=== PATIENT | female | born 1960 | race Caucasian/White ===

== ENCOUNTER 2019-07-02 06:00 | Day surgery (SDC) | payer OTHER ==
[2019-07-01 10:46] VITALS: BMI 19.3
--- NOTE | 2019-07-01 12:27 | HP ---
HISTORY OF PRESENT ILLNESS: Hillary Cole is a very pleasant 59-year-old female, referred for a lung mass. Apparently about a month ago, she developed supraclavicular lymphadenopathy that she noticed while she was showering. She subsequently had an ultrasound of her supraclavicular area last month. This was followed by a CT of the chest which showed a large left lung mass and small right lung masses. She subsequently was referred. She denies having any respiratory issues with this or prior to this. She did receive a course of steroids and said she felt poorly after the steroids. PAST MEDICAL HISTORY: Otherwise noncontributory. FAMILY HISTORY: She lost her father with mesothelioma. SOCIAL HISTORY: She is a smoker. She is a daily drinker. She admits that she has been drinking more and smoking more since she was told she had a lung mass. REVIEW OF SYSTEMS: Ten points otherwise negative. She denies hemoptysis. PHYSICAL EXAMINATION: VITAL SIGNS: Her pulse is 76, respiratory rate is 18, oximetry is 96% on room air. HEENT: Pupils react. Sclerae are anicteric. NECK: Remarkable for large matted supraclavicular nodes on the left. HEART: Regular rhythm. S1 and S2 are normal. LUNGS: Clear. ABDOMEN: Soft and nontender. No masses are palpated. EXTREMITIES: Without edema. IMPRESSION: Large lung mass with left supraclavicular nodes, likely metastatic disease. Her lung mass in her left upper lobe measured 9.3 x 5.7 cm. The easiest point to make a successful diagnosis will be to biopsy the supraclavicular node. I have talked to Cardiothoracic Surgery and they are willing to put her on the schedule on Friday. There are no other medical issues. She takes lisinopril for hypertension. I will be happy to see her on Friday if we have results back Friday. Job ID: [id number]
[2019-07-02] MEDS ORDERED: Fentanyl 100 MCG/2 ML VIAL ONE (06:27)
[2019-07-02 07:09] LABS: #Basophils 0.1 thou/uL (0.0-0.2); #Eosinphils 0.4 thou/uL (0.0-0.7); #Lymphocytes 1.1 thou/uL (1.20-3.40); #Monocytes 0.6 thou/uL (0.11-0.59); #Neutrophils 7.1 thou/uL (1.40-6.50); %Basophils 0.7 % (0.0-1.0); %Eosinophils 4.5 % (0.0-10.0); %Lymphocytes 11.5 % (21.0-51.0); %Monocytes 6.7 % (0.0-10.0); %Neutrophils 76.5 % (42.0-75.0); Hemoglobin 13.5 g/dL (12.0-16.0); Mean Corpuscular HGB CONC 33.9 g/dL (32.0-36.0); Mean Corpuscular Hemoglobin 32.1 pg (27.0-31.0); Mean Corpuscular Volume 94.7 fL (78.0-98.0); Mean Platelet Volume 6.5 fL (7.4-10.4); Platelet Count 398 thou/uL (130-400); RBC Distribution Width 12.5 % (11.5-14.5); Red Blood Cell (RBC) Count 4.19 mill/uL (4.20-5.40); White Blood Cell (WBC) Count 9.3 thou/uL (4.8-10.8)
[2019-07-02 07:20] LABS: Anion Gap 11 mmol/L (10-20); BUN (Urea Nitrogen) 7 mg/dL (9.8-20.1); Calc. Creatinine Clearance 94 mL/min (70-130); Calcium 9.1 mg/dL (7.8-10.44); Carbon Dioxide 26 mmol/L (22-29); Chloride 93 mmol/L (98-107); Estimated GFR-MDRD Greater than 90; Glucose 81 mg/dL (70-105); Potassium 4.4 mmol/L (3.5-5.1); Sodium 126 mmol/L (136-145)
[2019-07-02] MEDS ORDERED: Albuterol Sulfate HFA (OR ONLY) ONE (07:35)
[2019-07-02] MEDS ORDERED: Bupivacaine PF 0.5% 30 ML VIAL ONE (07:49)
[2019-07-02] MEDS ORDERED: EPINEPHrine 1 MG/ML AMP ONE (07:49)
--- NOTE | 2019-07-02 09:56 | OP ---
DATE OF PROCEDURE: 07/02/2019 PREOPERATIVE DIAGNOSIS: Left supraclavicular mass in the setting of a large left apical lung mass. POSTOPERATIVE DIAGNOSIS: Frozen section returned as malignant cells in a background of fibrosis. Further specimen was sent for further pathologic exam. PROCEDURE PERFORMED: Open excisional biopsy of left supraclavicular mass. ANESTHESIA: General endotracheal. ESTIMATED BLOOD LOSS: Minimal. SPECIMENS: Left supraclavicular mass, frozen as above. DESCRIPTION OF PROCEDURE: After consent was obtained, the patient was brought to the operating room and placed in supine position on the operating table. Appropriate central line and monitors were placed and general endotracheal anesthesia was induced. Left neck was prepped and draped in the usual sterile fashion. Skin incision was made over the mass and dissection down through the platysma was obtained with electrocautery. The mass was exposed. An excisional specimen sent for frozen section. Frozen section returned as malignant cells in a background of fibrosis. The pathologist requested further specimen for further exam, so a 2nd larger specimen was taken and sent for routine pathologic examination. Hemostasis was ensured. The wound was injected with bupivacaine mixed with epinephrine. The wound was then closed in layers and Dermabond applied to the skin. The patient tolerated the procedure well, was awakened, extubated, and transferred to the recovery room in stable condition. Job ID: [id number]
[2019-07-02] MEDS ORDERED: PROPOFOL 200 MG/20 ML VIAL ONE (10:22)
[2019-07-02] MEDS ORDERED: Ondansetron PF 4 MG/2 ML Vial ONE (10:22)
[2019-07-02] MEDS ORDERED: PHENYLEPHRINE-NS 100 MCG/ML 10 ML SYRINGE ONE (10:22)
[2019-07-02] MEDS ORDERED: ePHEDrine/0.9% NaCl/PF SYRINGE 50 mg/10 ml ONE (10:22)
[2019-07-02] MEDS ORDERED: Lidocaine 1% PF 5 ML VIAL ONE (10:22)
[2019-07-02] MEDS ORDERED: Dexamethasone 20 MG/5 ML VIAL ONE (10:22)
--- NOTE | 2019-07-02 17:57 | EKG ---
Test Reason : PREOP Blood Pressure : / mmHG Vent. Rate : 072 BPM Atrial Rate : 072 BPM P-R Int : 158 ms QRS Dur : 062 ms QT Int : 370 ms P-R-T Axes : 044 080 084 degrees QTc Int : 405 ms Normal sinus rhythm Septal infarct , age undetermined Abnormal ECG When compared with ECG of 20-NOV-2007 09:00, No significant change was found Confirmed by Vivian GERARDO ([id number]) on 07/02/2019 5:57:42 PM Referred By: SRAVANTHI Confirmed By:Vivian GERARDO
== END 2019-07-02 10:34 | disposition home or self-care (01) ==
LOC: SDC 06:00
PROVIDERS: ATTEND Thoracic Surgery (Cardiothoracic Vascular Surgery)
PROC: 0JB50ZX Excision of Left Neck Subcutaneous Tissue and Fascia, Open Approach, Diagnostic (ICD-10-PCS; principal; 2019-07-02)
DX: C76.0 Malignant neoplasm of head, face and neck (principal); J84.10 Pulmonary fibrosis, unspecified; F17.210 Nicotine dependence, cigarettes, uncomplicated
CPT/HCPCS: 36415; 80048; 85025; 88305; 88331; 88334; 88341; 88342; 93005; 93010; J0171; J0690; J1100; J2001; J2405; J2704; J3010; S0020

== ENCOUNTER 2019-07-22 08:22 | Outpatient (CLI) | payer OTHER ==
--- NOTE | 2019-07-22 10:01 | PET ---
PET CT SKULL TO MID THIGH: COMPARISON: None. HISTORY: Left upper lobe malignancy. TECHNIQUE: A PET/CT was performed from the skull to the mid thigh after administration of 11 millicuries of F-18 FDG. Evaluation was performed on a [employer] workstation. COMPARISON: Reference made to CT thorax 06/18/2019. FINDINGS: NECK: Hypermetabolic adenopathy of the neck is present involving the left cervical chain and the left peric lavicular region. Dominant, left supraclavicular lymph node, with maximum SUV of 3.6 measures approximately 2.1 cm in diameter. Thyroid hypodensity mentioned on recent CT chest is not reliably depicted on the basis of the techniq ue of this exam. CHEST: Large, hypermetabolic mass of left upper lobe, 7 x 6.8 cm in axial dimensions and demonstrates SUV me asuring 7.1. There is adjacent multifocal nodularity and groundglass opacity of the left upper lobe, as well as a vague groundglass nodularity of the left lower lobe. There is a partially cavitate d mass of the posterior right upper lobe, SUV, approximately 1.5, which is not hypermetabolic. There is scattered pulmonary parenchymal nodularity throughout the right lung, as well. There is hype rmetabolic adenopathy of the left paratracheal region, SUV measuring 4.4. Discrete size measurements of the adenopathy are not reliably ascertained on the basis of the nondiagnostic, noncon trast CT attenuation portion of the exam. Adjacent, mildly hypermetabolic adenopathy of the left prevascular space measures 2.7 SUV. ABDOMEN/PELVIS: No areas of hypermetabolic activity. SKELETON: No areas of hypermetabolic activity. IMPRESSION: 1. Evidence of left pulmonary malignancy with metastatic disease of the neck and chest. 2. There are additional multifocal pulmonary parenchymal opacities bilaterally, for which continued CT imaging follow-up is warranted. Transcribed Date/Time: 07/22/2019 10:31 AM
== END 2019-07-22 08:23 | disposition home or self-care (01) ==
LOC: PET 08:22
PROVIDERS: ATTEND Internal Medicine Hematology & Oncology
DX: C34.12 Malignant neoplasm of upper lobe, left bronchus or lung (principal); C79.89 Secondary malignant neoplasm of other specified sites; R91.8 Other nonspecific abnormal finding of lung field
CPT/HCPCS: 78815; A9552

== ENCOUNTER 2019-07-26 08:28 | Outpatient (CLI) | payer OTHER ==
--- NOTE | 2019-07-26 09:57 | MRI ---
MRI BRAIN WITH AND WITHOUT CONTRAST: DATE: 07/26/2019 HISTORY: 59-year-old female with "malignant neoplasm of upper lobe, left bronchus or lung C 34.12" search for brain metastasis. Dr. Monterroso was notified of results at 9:55 AM on 07/26/2019 COMPARISON: none TECHNIQUE: Multiplanar, multisequence MRI of the brain performed pre- and post-IV injection of gadolinium based contrast agent. FINDINGS: There is a 0.7 x 0.9 x 0.9 cm ring-enhancing intra-axial lesion at the left parietal briseno-white junct ion, with small surrounding the region of vasogenic edema. The lesion itself has restricted diffusion, suggestive of tumor with high nucleus to cytoplasm ratio such as small cell carcinoma. There are no other enhancing intra-axial lesions. Ventricles are normal in size and configuration. No evidence of recent or remote intra-axial hemorrhage. No mass effect, midline shift, or extra-axial fluid collection. 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
== END 2019-07-26 08:29 | disposition home or self-care (01) ==
LOC: TBSIIMAG 08:28
PROVIDERS: ATTEND Internal Medicine Hematology & Oncology
DX: C34.12 Malignant neoplasm of upper lobe, left bronchus or lung (principal); C79.31 Secondary malignant neoplasm of brain
CPT/HCPCS: 70553

== ENCOUNTER 2019-11-09 10:32 | Outpatient (CLI) | payer OTHER ==
--- NOTE | 2019-11-09 13:02 | PET ---
Exam: PET SCAN WITH CT ATTENUATION CORRECTION: COMPARISON: 07/22/2019. HISTORY: Left upper lobe bronchus neoplasm. TECHNIQUE: PET scan with CT attenuation correction is performed from the base of the brain to the pro ximal thighs following the intravenous administration of 12.2 mCi of [id number]. FINDINGS: Head and neck: The previously noted FDG avidity in the lower left neck/supraclavicular region is no l onger evident. Chest: Interval decrease in size of a previously identified left upper lobe mass. Currently, the mas s measures 3.5 x 3.[address] used for attenuation correction. There is a linear component extending medially along the left upper lobe. There appears to be cavitary component. There is still evidence of hypermetabolic activity with maximum SUV between 3.1 and 3.4. No additional hypermetabolic activity in the left lung. No abnormal FDG localization in the right lung or mediastin um. CT used for attenuation correction demonstrates stable linear and more masslike opacities in the right upper lobe. Abdomen and pelvis: No abnormal FDG localization. Osseous structures: No abnormal FDG localization. IMPRESSION: 1. Partial response to therapy, interval decrease in size of hypermetabolic mass in the left upper lo be. 2. Redemonstration of multiple nonhypermetabolic nodules in the right lung. 3. Interval resolution of previously noted hypermetabolic activity involving the left lower neck and supraclavicular lymph nodes. Transcribed Date/Time: 11/09/2019 2:13 PM
--- NOTE | 2019-11-09 14:23 | MRI ---
Exam: Brain MRI with and without contrast HISTORY: Metastatic lung cancer. Status post radiation. Headache, posterior to the left ear. COMPARISON: 08/12/2019 FINDINGS: Gradient echo sequence: No hemorrhage Calvarium: Appropriate T1 marrow signal intensity Midline brain parenchyma: Unremarkable Cerebrum:There is intrinsic T1 hyperintensity involving the left parietal cortex measuring 0.3 cm. Po stcontrast images do demonstrate a slightly more globular focus suggesting associated enhancement. Overall, the lesion measures 0.4 cm. This area of intrinsic T1 hyperintensity with associated mild en hancement corresponds to the previous identified peripherally enhancing lesion that measured 0.9 x 0.8 cm. Findings likely represent post treatment change. There are no new areas of cerebral or cerebe llar enhancement. Stable T2 and FLAIR hyperintensities in the cerebrum. Ventricles: No evidence of hydrocephalus. Sinuses and mastoid air cells: Adequate aeration Diffusion: Central arterial flow is maintained. Absent restricted diffusion. Postcontrast images:Lesion in the left occipital lobe as described above. No additional brain parench ymal enhancement. IMPRESSION: 1. Interval decrease in size of a previously noted enhancing focus in the left occipital lobe. Intrin sic T1 hyperintensity likely represent posttreatment change. Minimal residual enhancement is noted. Findings suggest near complete resolution. 2. No new parenchymal static lesions.
== END 2019-11-09 10:33 | disposition home or self-care (01) ==
LOC: PET 10:32
PROVIDERS: ATTEND Internal Medicine Hematology & Oncology
DX: C34.12 Malignant neoplasm of upper lobe, left bronchus or lung (principal); C79.31 Secondary malignant neoplasm of brain; R91.8 Other nonspecific abnormal finding of lung field
CPT/HCPCS: 70553; 78815; A9552

== ENCOUNTER 2020-02-08 10:00 | Outpatient (CLI) | payer OTHER ==
--- NOTE | 2020-02-08 11:55 | MRI ---
BRAIN MRI WITH AND WITHOUT CONTRAST: HISTORY: Lung cancer. Brain metastases. COMPARISON: 11/09/2019, 08/12/2019, 07/26/2019. FINDINGS: Gradient echo sequence: No hemorrhage. Calvarium: Appropriate T1 marrow signal intensity. Midline brain parenchyma: Unremarkable. Cerebrum:No parenchymal mass, mass effect or midline shift. Brain volume is age-appropriate. Cortical briseno-white matter differentiation is preserved. Scattered T2 and FLAIR white matter hyperintensities, similar to the previous examination. Minimal chronic small vessel ischemic changes are favored. Ventricles: No evidence of hydrocephalus. Sinuses and mastoid air cells: Mild mucosal thickening of the paranasal sinuses. Adequate mastoid air cell aeration. Diffusion: Central arterial flow is maintained. Absent restricted diffusion. Postcontrast images:Previously noted peripherally enhancing focus involving the left parietal lobe hinojosa s significantly decreased in size. Currently, there is a cortically based enhancing focus at this site measuring 0.3 x 0.2 cm. Previously, this enhancing focus also measured 0.3 x 0.2 cm. There are n o new areas of abnormal brain parenchymal enhancement. IMPRESSION: 1. Stable solitary enhancing focus involving the left parietal lobe. 2. No areas of new parenchymal enhancement. Transcribed Date/Time: 02/08/2020 11:59 AM
[2020-02-08] MEDS ORDERED: Magnevist 469MG/ML 20 ML VIAL ONE (16:38)
== END 2020-02-08 10:01 | disposition home or self-care (01) ==
LOC: MRI 10:00
PROVIDERS: ATTEND Radiology Radiation Oncology
DX: C34.90 Malignant neoplasm of unspecified part of unspecified bronchus or lung (principal); C79.31 Secondary malignant neoplasm of brain
CPT/HCPCS: 70553; A9579

== ENCOUNTER 2020-05-23 13:25 | Outpatient (CLI) | payer OTHER ==
--- NOTE | 2020-05-23 16:07 | MRI ---
Exam: Brain MRI with and without contrast HISTORY: Restaging. Metastatic lung cancer. Patient has undergone radiosurgery. COMPARISON: 02/08/2020 FINDINGS: Gradient echo sequence: No hemorrhage Calvarium: Appropriate T1 marrow signal intensity Midline brain parenchyma: Unremarkable Cerebrum:Stable scattered T2 and FLAIR white matter hyperintensities due to chronic small vessel isch emic change. There is a focus of T2 and FLAIR hyperintensity involving the left parietal lobe, at the level of the centrum semiovale. Previously there was associated subtle enhancement. On the curren t examination, there is minimal residual 1.5 mm of enhancement. Findings suggest partial response to therapy. Increased T2 and FLAIR hyperintensity likely represents gliosis secondary to treatment. T here are no new or abnormal areas of white matter hyperintensity on the axial T2 or FLAIR images. Ventricles: No evidence of hydrocephalus. Sinuses and mastoid air cells: Mild mucosal thickening of the ethmoid air cells Diffusion: Central arterial flow is maintained. Absent restricted diffusion. Postcontrast images:Small focus of 1.5 mm of residual enhancement involving the left parietal lobe. N o new areas of cerebral or cerebellar enhancement are appreciated. IMPRESSION: 1. Response to therapy. The overall degree of enhancement involving the left parietal lobe has decrea sed.
== END 2020-05-23 13:26 | disposition home or self-care (01) ==
LOC: SCSMRI 13:25
PROVIDERS: ATTEND Radiology Radiation Oncology
DX: C79.31 Secondary malignant neoplasm of brain (principal); C80.1 Malignant (primary) neoplasm, unspecified
CPT/HCPCS: 70553

== ENCOUNTER 2020-06-13 09:04 | Outpatient (CLI) | payer OTHER ==
--- NOTE | 2020-06-13 11:54 | PET ---
PET W CT Skull to Mid Thigh History: Ligament neoplasm of upper lobe left bronchus or lung restaging Comparison: PET CT March 09, 2020 Findings: PET/CT was performed from the vertex through hilum then from the mid skull to the thighs af ter the intravenous administration of 11.9 mCi F-18 FDG. Intracranial uptake is symmetric. No cervical adenopathy. Biapical scar and post treatment change is similar. Small left infrahilar nodule within the anterior segment left lower lobe measures 11 mm, previously 8 mm in May 2019 with relative similar size to the March 09, 2020 exam. This nodule has SUV max of 3. No new markedly FDG avid pulmonary nodules. New left lower lobe consolidation within the posterior segment. No dilated loops of large or small bowel. No hydronephrosis. No free intraperitoneal gas or fluid. No FDG avid osseous metastatic disease. The liver, kidneys, spleen, pancreas have unremarkable noncontrast appearance. Impression: 1. Continued lack of left upper lobe FDG avidity to suggest disease recurrence. Similar posttreatment changes. 2. New left lower lobe consolidative process with low-grade FDG avidity likely infection. 3. Slight interval size increase left infrahilar nodule now measuring up to 11 mm, slightly grown fro m May 2019. This could reflect an exophytic perihilar node and could be reactive due to the left lower lobe pneumonia and low-grade inherent FDG avidity. Follow-up chest CT in 6 weeks after res olution of pneumonia recommended.
== END 2020-06-13 09:05 | disposition home or self-care (01) ==
LOC: PET 09:04
PROVIDERS: ATTEND Internal Medicine Hematology & Oncology
DX: C34.90 Malignant neoplasm of unspecified part of unspecified bronchus or lung (principal); R93.89 Abnormal findings on diagnostic imaging of other specified body structures; J18.9 Pneumonia, unspecified organism; R91.1 Solitary pulmonary nodule
CPT/HCPCS: 78815; A9552

== ENCOUNTER 2020-07-11 12:36 | Outpatient (CLI) | payer OTHER ==
[~2020-07-11 12:36] MED LIST: Iopamidol-370 76% 500 ML 1 ML ONE
--- NOTE | 2020-07-11 13:27 | CT ---
CT OF THE CHEST WITH IV CONTRAST INDICATION: History of lung neoplasm COMPARISON: Prior PET/CT dated June 13, [address] of the thorax dated June 18, 2019 FINDINGS: CHEST: Lungs: The treated left upper lobe mass and associated scar in the left upper lobe appears similar to the most recent PET/CT evaluation. No definite recurrent mass is noted within this area. Small 7 mm region of spiculation involving the posterior segment of the left upper lobe is stable to the most recent PET/CT. This lesion did not have any associated hypermetabolic activity on the prior PET/CT but is below PET resolution threshold. Scarlike opacity of the right upper lobe is stable. Scarring a nd bronchiectasis within scattered areas of the right lower lobe are stable. The spiculated pulmonary nodule within the left infrahilar region is slightly larger than the most recent PET/CT whe re measured approximately 11.8 mm and now measures 12.8 mm. The previously seen posterior medial left lower lobe pneumonia has cleared. Pleural space: No effusion. Mediastinum: No pathologically enlarged lymph nodes are evident. Upper abdomen:No acute abnormality. Osseous structures: No acute osseous abnormality. No destructive osteolytic or osteoblastic lesion i s identified. There is scattered degenerative and osteoarthritic changes. Soft tissues:Normal. IMPRESSION: 1. Stable scarlike opacity within the left upper lobe consistent with treated left upper lobe lung ma ss. No recurrent lung mass is evident within this region. Spiculated scarlike opacity within the left upper lobe is largely stable to the most recent PET/CT. 2. Enlarging left infrahilar spiculated pulmonary nodule is suspicious for an enlarging metastatic le barbie or secondary malignancy of the left lung. Follow-up PET/CT is recommended. 3. Stable areas of mild scarring with a few scattered areas of bronchiectasis within the right upper lobe and right lower lobe. 4. Interval clearing of the left lower lobe pneumonia seen on the recent PET/CT.
== END 2020-07-11 12:37 | disposition home or self-care (01) ==
LOC: BICCT 12:36
PROVIDERS: ATTEND Internal Medicine Hematology & Oncology
DX: C34.12 Malignant neoplasm of upper lobe, left bronchus or lung (principal); R91.8 Other nonspecific abnormal finding of lung field; J18.9 Pneumonia, unspecified organism; R91.1 Solitary pulmonary nodule
CPT/HCPCS: 71260; Q9967

== ENCOUNTER 2020-09-05 12:41 | Outpatient (CLI) | payer OTHER ==
[~2020-09-05 12:41] MED LIST changes: -Iopamidol-370 76% 500 ML 1 ML ONE; +Magnevist 469MG/ML 20 ML VIAL ONE
--- NOTE | 2020-09-05 14:09 | MRI ---
MRI brain with and without contrast: DATE: 09/05/2020 HISTORY: 60-year-old female follow-up post treatment with radiosurgery, for brain metastasis. COMPARISON: 05/23/2020 TECHNIQUE: Multiplanar, multisequence MRI of the brain obtained pre and post IV injection of gadolinium based co ntrast agent. FINDINGS: The 9 mm ring-enhancing left parietal intra-axial solitary brain metastasis first demonstrated on the MRI of 07/26/2019, has been gradually shrinking as documented by multiple serial brain MRIs. By the time of the 05/23/2020 MRI, there was only a very faint, tiny approximately 1 mm focus of subtle enhancement in the left parietal briseno-white junction, with a small surrounding halo of hyperintense signal on FLAIR. This has not changed as of the current MRI. On the initial postcontrast T1 MPR, no e nhancement is appreciated. The minimal tiny focus of enhancement is only apparent on the slightly delayed standard postcontrast T1 WI axial sequence. There is no obstructive hydrocephalus. There is no midline shift or any other evidence of mass effect . There is no extra-axial fluid collection. There are mild chronic ischemic white matter changes due to microvascular atherosclerosis. There is otherwise no new major intra-axial signal abnormality, new abnormal enhancement, mass, recent hemorrhage, or restricted diffusion. IMPRESSION: 1) tiny subtle faint remnant of the left parietal intra-axial solitary brain metastasis, is unchanged since 05/23/2020. 2) mild chronic ischemic white matter changes. 3) no new metastases
== END 2020-09-05 12:42 | disposition home or self-care (01) ==
LOC: MRI 12:41
PROVIDERS: ATTEND Radiology Radiation Oncology
DX: C34.90 Malignant neoplasm of unspecified part of unspecified bronchus or lung (principal); C79.31 Secondary malignant neoplasm of brain; I67.82 Cerebral ischemia
CPT/HCPCS: 70553; A9579

== ENCOUNTER 2020-10-02 09:10 | Outpatient (CLI) | payer OTHER ==
[2020-10-02] MEDS ORDERED: Iopamidol 370 76% 100 ML VIAL ONE (11:03)
== END 2020-10-02 09:11 | disposition home or self-care (01) ==
LOC: CT 09:10
PROVIDERS: ATTEND Internal Medicine Hematology & Oncology
DX: C34.12 Malignant neoplasm of upper lobe, left bronchus or lung (principal); R91.1 Solitary pulmonary nodule; R91.8 Other nonspecific abnormal finding of lung field; J43.9 Emphysema, unspecified; N28.1 Cyst of kidney, acquired; K57.30 Diverticulosis of large intestine without perforation or abscess without bleeding
CPT/HCPCS: 71260; 74177; Q9967

== ENCOUNTER 2020-12-05 09:52 | Outpatient (CLI) | payer OTHER | END 2020-12-05 09:53 | disposition home or self-care (01) | LOC: PET 09:52 | PROVIDERS: ATTEND Internal Medicine Hematology & Oncology | DX: C34.90 Malignant neoplasm of unspecified part of unspecified bronchus or lung (principal); R91.1 Solitary pulmonary nodule | CPT/HCPCS: 78815; A9552 ==

== ENCOUNTER 2021-03-15 | Outpatient (CLI) | payer OTHER | END 2021-03-15 12:29 | disposition home or self-care (01) | DX: C79.31 Secondary malignant neoplasm of brain (principal) ==

== ENCOUNTER 2021-08-15 10:42 | Outpatient (CLI) | payer OTHER ==
[2021-08-15] MEDS ORDERED: Magnevist 469MG/ML 20 ML VIAL ONE (12:30)
== END 2021-08-15 10:43 | disposition home or self-care (01) ==
LOC: MRI 10:42
PROVIDERS: ATTEND Radiology Radiation Oncology
DX: C79.31 Secondary malignant neoplasm of brain (principal); C34.90 Malignant neoplasm of unspecified part of unspecified bronchus or lung
CPT/HCPCS: 70553

== ENCOUNTER 2021-09-07 11:33 | Outpatient (CLI) | payer OTHER ==
[~2021-09-07 11:33] MED LIST changes: +Iopamidol 370 76% 100 ML VIAL ONE; -Magnevist 469MG/ML 20 ML VIAL ONE
== END 2021-09-07 11:34 | disposition home or self-care (01) ==
LOC: CT 11:33
PROVIDERS: ATTEND Internal Medicine Hematology & Oncology
DX: C34.12 Malignant neoplasm of upper lobe, left bronchus or lung (principal); R91.8 Other nonspecific abnormal finding of lung field; N28.1 Cyst of kidney, acquired
CPT/HCPCS: 71260; 74160; Q9967

== ENCOUNTER 2021-12-13 09:35 | Outpatient (CLI) | payer OTHER, SELFPAY ==
[2021-12-13 10:02] LABS: Estimated GFR-MDRD - POC Greater than 90
== END 2021-12-13 09:36 | disposition home or self-care (01) ==
LOC: CT 09:35
PROVIDERS: ATTEND Internal Medicine Hematology & Oncology
DX: C34.12 Malignant neoplasm of upper lobe, left bronchus or lung (principal); R91.1 Solitary pulmonary nodule; J98.4 Other disorders of lung
CPT/HCPCS: 71260; 74160; 82565

== ENCOUNTER 2021-12-20 11:50 | Outpatient (CLI) | payer OTHER | END 2021-12-20 11:51 | disposition home or self-care (01) | LOC: MRI 11:50 | PROVIDERS: ATTEND Radiology Radiation Oncology | DX: C34.90 Malignant neoplasm of unspecified part of unspecified bronchus or lung (principal); C79.31 Secondary malignant neoplasm of brain | CPT/HCPCS: 70553 ==

== ENCOUNTER 2022-06-06 10:16 | Outpatient (CLI) | payer OTHER | END 2022-06-06 10:17 | disposition home or self-care (01) | LOC: MRI 10:16 | PROVIDERS: ATTEND Radiology Radiation Oncology | DX: C79.31 Secondary malignant neoplasm of brain (principal); C34.90 Malignant neoplasm of unspecified part of unspecified bronchus or lung; Z92.3 Personal history of irradiation | CPT/HCPCS: 70553 ==

== ENCOUNTER 2022-09-25 10:40 | Outpatient (CLI) | payer OTHER ==
[~2022-09-25 10:40] MED LIST changes: +GASTROGRAFIN 30 ML BOT ONE
== END 2022-09-25 10:41 | disposition home or self-care (01) ==
LOC: CT 10:40
PROVIDERS: ATTEND Internal Medicine Hematology & Oncology
DX: C34.12 Malignant neoplasm of upper lobe, left bronchus or lung (principal)
CPT/HCPCS: 71260; 74160; 82565; Q9963; Q9967

== ENCOUNTER 2023-04-17 12:42 | Outpatient (CLI) | payer OTHER | END 2023-04-17 12:43 | disposition home or self-care (01) | LOC: CT 12:42 | PROVIDERS: ATTEND Internal Medicine Hematology & Oncology | DX: C34.12 Malignant neoplasm of upper lobe, left bronchus or lung (principal); R91.8 Other nonspecific abnormal finding of lung field | CPT/HCPCS: 71260; 74160; 82565 ==

== ENCOUNTER 2023-06-25 12:42 | Outpatient (CLI) | payer OTHER | END 2023-06-25 12:43 | disposition home or self-care (01) | LOC: BICCT 12:42 | PROVIDERS: ATTEND Internal Medicine Hematology & Oncology | DX: C34.12 Malignant neoplasm of upper lobe, left bronchus or lung (principal); R91.8 Other nonspecific abnormal finding of lung field | CPT/HCPCS: 71250 ==

== ENCOUNTER 2023-06-30 10:34 | Outpatient (CLI) | payer OTHER ==
[~2023-06-30 10:34] MED LIST changes: -GASTROGRAFIN 30 ML BOT ONE; -Iopamidol 370 76% 100 ML VIAL ONE; +Magnevist 469MG/ML 20 ML VIAL ONE
== END 2023-06-30 10:35 | disposition home or self-care (01) ==
LOC: MRI 10:34
PROVIDERS: ATTEND Radiology Radiation Oncology
DX: C34.90 Malignant neoplasm of unspecified part of unspecified bronchus or lung (principal); C79.31 Secondary malignant neoplasm of brain
CPT/HCPCS: 70553; A9579

== ENCOUNTER 2024-01-14 11:31 | Outpatient (CLI) | payer OTHER | END 2024-01-14 11:32 | disposition home or self-care (01) | LOC: PET 11:31 | PROVIDERS: ATTEND Radiology Radiation Oncology | DX: C34.12 Malignant neoplasm of upper lobe, left bronchus or lung (principal); C78.02 Secondary malignant neoplasm of left lung; R91.8 Other nonspecific abnormal finding of lung field; J98.4 Other disorders of lung | CPT/HCPCS: 78815; A9552 ==